=== PATIENT | male | born 1970 | race Caucasian/White ===

== ENCOUNTER 2016-12-17 19:36 | Emergency (ER) | payer OTHER ==
[~2016-12-17] VITALS: Ht 180.3 cm; Wt 81.8 kg
[2016-12-17] MEDS ORDERED: ADDERALL 20 MG20 MG PO (19:48)
[2016-12-17] MEDS ORDERED: ZESTRIL2.5 M1 PO (19:54)
[2016-12-17] MEDS ORDERED: PERCOCET 325 MG1 TA2 PO (21:31)
[2016-12-17] MEDS ORDERED: CEPHALEXIN500 M1 PO (21:31)
[2016-12-17 21:51] VITALS: BP 128/95
== END 2016-12-17 21:51 | disposition home or self-care (01) ==
LOC: ED 19:36
DX: T20.09XA Burn of unspecified degree of multiple sites of head, face, and neck, initial encounter (principal); T23.291A Burn of second degree of multiple sites of right wrist and hand, initial encounter; W40.1XXA Explosion of explosive gases, initial encounter; Y93.G2 Activity, grilling and smoking food; Y92.096 Garden or yard of other non-institutional residence as the place of occurrence of the external cause; I10 Essential (primary) hypertension; F17.210 Nicotine dependence, cigarettes, uncomplicated
CPT/HCPCS: 90715; J0690; J1885; J3010

== ENCOUNTER → 2018-11-07 | Outpatient (CLI) | payer OTHER ==
[~2018-11-07] MED LIST: ADDERALL 20 MG20 MG PO; CEPHALEXIN500 M1 PO; PERCOCET 325 MG1 TA2 PO; ZESTRIL2.5 M1 PO
[2018-11-07 12:33] LABS: HEMATOCRIT 44.3 % (42.0-52.0); HEMOGLOBIN 14.4 g/dL (13.5-18.0); MEAN CELL VOLUME 90 fl (78-100); MEAN CORPUSCULAR HEMOGLOBIN 29 pg (27-31); MEAN CORPUSCULAR HGB CONC 33 g/dL (33-37); MEAN PLATELET VOLUME 10.7 fl (7.4-10.4); PLATELET COUNT 271 K/mm3 (130-400); RED BLOOD COUNT 4.95 M/mm3 (4.20-5.60); RED CELL DISTRIBUTION WIDTH 13.9 % (11.5-14.5); WHITE BLOOD COUNT 6.7 K/mm3 (4.8-10.8)
[2018-11-07 12:49] LABS: ALBUMIN 4.4 g/dL (3.5-5.0); CALCIUM 9.3 mg/dL (8.4-10.2); POTASSIUM 3.9 mmol/L (3.6-5.0); TOTAL BILIRUBIN 0.5 mg/dL (0.2-1.3); TOTAL PROTEIN 7.7 g/dL (6.3-8.2)
[2018-11-07 13:33] LABS: LYMPHOCYTE 29 % (20-51); MONOCYTE 13 % (3-10); NEUTROPHILS 54 % (42-75)
== END ==
LOC: LAB 12:20
PROVIDERS: Family Medicine
DX: R10.32 Left lower quadrant pain (principal)